=== PATIENT | male | born 1960 | race Caucasian/White ===

== ENCOUNTER 2017-06-01 10:50 | Emergency (ER) | payer MEDICAID ==
[2017-06-01 11:40] LABS: % IMMATURE GRANULYOCYTES 0.5 % (0.0-1.1); ABSOLUTE IMMATURE GRANULOCYTES 0.03 10^3/uL (0.00-0.10); ADD DIFF? NO; ADD MORPH? NO; ADD SCAN? NO; ATYPICAL LYMPHOCYTE FLAG 10 (0-99); FRAGMENT RBC FLAG 0 (0-99); HEMATOCRIT 47.6 % (40.0-51.0); LEFT SHIFT FLG 0 (0-99); LIPEMIA HEMOLYSIS FLAG 90 (0-99); MEAN CELL HEMOGLOBIN 31.2 pg (27.9-34.1); MEAN CELL HEMOGLOBIN CONCENTR. 35.7 g/dL (32.4-36.7); MEAN CELL VOLUME 87.3 fL (81.5-99.8); MEAN PLATELET VOLUME 9.5 fL (8.7-11.7); PLATELET CLUMPS FLAG 0 (0-99); PLATELET COUNT 250 10^3/uL (150-400); RED BLOOD CELL COUNT 5.45 10^6/uL (4.40-6.38)
[2017-06-01] MEDS ORDERED: NS 1,000 ML IV ONE (11:42)
[2017-06-01 12:03] LABS: ALANINE AMINOTRANSFERASE 56 IU/L (21-72); ALBUMIN 4.4 g/dL (3.5-5.0); ALKALINE PHOSPHATASE 114 IU/L (38-126); ANION GAP 13 mEq/L (8-16); ASPARTATE AMINOTRANSFERASE 39 IU/L (17-59); BILIRUBIN-CONJUGATED 0.3 mg/dL (0.0-0.5); BILIRUBIN-UNCONJUGATED 0.7 mg/dL (0.0-1.1); CALCIUM 9.9 mg/dL (8.5-10.4); CARBON DIOXIDE 22 mEq/l (22-31); CHLORIDE 105 mEq/L (97-110); GLOMERULAR FILTRATION RATE > 60; GLUCOSE 94 mg/dL (70-100); POTASSIUM 4.5 mEq/L (3.5-5.2); SODIUM 140 mEq/L (134-144); TOTAL PROTEIN 7.5 g/dL (6.3-8.2)
--- NOTE | 2017-06-01 12:14 | EDPHY ---
H & P Stated Complaint: Loose stool/diarrhea yesterday;int mid abd pain relieved w/ belching - Personal History Current Tetanus Diphtheria and Acellular Pertussis (TDAP): Yes - Medical/Surgical History Hx Asthma: No Hx Chronic Respiratory Disease: No Hx Diabetes: No Hx Cardiac Disease: No Hx Renal Disease: No Hx Cirrhosis: No Hx Alcoholism: No Hx HIV/AIDS: No Hx Splenectomy or Spleen Trauma: No Other PMH: anxiety - Social History Smoking Status: Never smoked Time Seen by Provider: 06/01/17 11:31 HPI/ROS: CHIEF COMPLAINT: Epigastric pain since yesterday morning HISTORY OF PRESENT ILLNESS: 56-year-old male no history of cardiac disease, no history of chronic abdominal pathology complaining of epigastric discomfort, belching more than usual and loose stool since yesterday morning. No radiation of epigastric pain. No fever or chills. No vomiting. No nausea. No back pain. No head ache. No syncope or near syncope. No urinary abnormality. No palpitations. No dyspnea. No neck pain. REVIEW OF SYSTEMS: A ten point review of systems was performed and is negative with the exception of the items mentioned in the HPI PAST MEDICAL & SURGICAL HISTORY: Inguinal herniorrhaphy by Dr. Mayra Katz SOCIAL HISTORY: nonsmoker. Social alcohol use only PHYSICAL EXAM (Prior to examination, patient consented to physical exam, hands were washed and my usual and customary physical exam procedures followed) 1) GENERAL: Well-developed, well-nourished, alert and oriented. Appears to be in no acute distress. 2) HEAD: Normocephalic, atraumatic 3) HEENT: Pupils equal, round, reactive to light bilaterally. Sclera anicteric. Nasopharynx, oropharynx, clear, no lesions. Moist mucous membranes 4) NECK: Full range of motion, no meningeal signs. 5) LUNGS: Clear auscultation bilaterally, no wheezes, no rhonchi, no retractions. 6) HEART: Regular rate and rhythm, no murmur, no heave, no gallop. 7) ABDOMEN: No guarding, tender to palpation epigastrium and positive Lester sign negative McBurney's, negative Rovsing's, negative peritoneal sign, 8) MUSCULOSKELETAL: Moving all extremities, no focal areas of tenderness, no obvious trauma. No peripheral edema or discoloration. 9) BACK: No CVA tenderness, no midline vertebral tenderness, no fluctuance, no step-off, no obvious trauma, no visual or palpable abnormality. 10) SKIN: No rash, no petechiae. 11) Psychiatric: Patient is oriented X 3, there is no agitation. DIFFERENTIAL DIAGNOSIS: [In no particular order, including but not limited to biliary colic, cholecystitis, peptic ulcer disease, pancreatitis, VA, and gastroenteritis. This is a partial list of diagnoses considered. These considerations are based on history, physical exam, past history and reassessment. (Stacy Nolasco) Constitutional: Initial Vital Signs Temperature (C) 36.8 C 06/01/17 10:57 Heart Rate 71 06/01/17 10:57 Respiratory Rate 18 06/01/17 10:57 Blood Pressure 140/87 H 06/01/17 10:57 O2 Sat (%) 98 06/01/17 10:57 O2 Delivery Mode Room Air Allergies/Adverse Reactions: "allergic to something but can't re Allergy (Uncoded 06/01/17 11:02) Home Medications: Medication Instructions Recorded PARoxetine CR [Paxil Cr 25mg (*)] 25 mg PO 06/01/17 Pantoprazole Sodium [Protonix 40mg 40 mg PO DAILY #30 tab 06/01/17 (RX)] Medical Decision Making - Diagnostics Imaging Results: Images reviewed myself (Stacy Nolasco) ED Course/Re-evaluation: 3:30 p.m.: This patient was re-evaluated with serial examinations and care and management discussed with secondary supervising physician Dr. Edith Mcgregor. Discussed with patient his imaging results. Re-examined him, states that his pain is currently 1/10 any remains mildly tender in the epigastrium. No McBurney's point pain. The specific etiology for his abdominal pain is incompletely clear at this time. I think that cardiac etiology such as VA is less than likely in the presence of normal EKG, normal troponin, normal chest x- ray and symptoms then occurring for 24 hours. He has no evidence of bowel obstruction, no evidence of acute cholecystitis, no evidence of acute surgical abdominal pathology. He continues to belch. Starting the patient on proton pump inhibitor and recommended follow up with Gastroenterology and primary care provider. He has been given usual customary abdominal precautions and instructions and feels comfortable being discharged. (Stacy Nolasco) Other Provider: The patient wasevaluatedand managed by themtnlevel provider. My co- signature indicates that Harrison reviewed this chart and I agree with the findings and plan of care asdocumented. I am the secondary supervising physician. (Edith Mcgregor) - Data Points Laboratory Results: Laboratory Results 06/01/17 11:25 06/01/17 11:25 Medications Given: Discontinued Medications Al Hydroxide/Mg Hydroxide (Maalox Susp) 30 ml PO ONCE ONE Stop: 06/01/17 15:35 Last Admin: 06/01/17 15:45 Dose: 30 ml Hyoscyamine Sulfate (Levsin, Hyomax-Sl) 0.25 mg PO ONCE ONE Stop: 06/01/17 15:35 Last Admin: 06/01/17 15:44 Dose: 0.25 mg Sodium Chloride (Ns) 1,000 mls @ 0 mls/hr IV ONCE ONE PRN Reason: Wide Open Stop: 06/01/17 11:43 Last Admin: 06/01/17 11:46 Dose: 1,000 mls Lidocaine (Lidocaine 2% Viscous) 15 ml PO ONCE ONE Stop: 06/01/17 15:35 Last Admin: 06/01/17 15:45 Dose: 15 ml Departure - Departure Disposition: Home, Routine, Self-Care Clinical Impression: Belching, Abdominal discomfort, epigastric Condition: Good Instructions: Epigastric Pain (ED) Additional Instructions: Seek immediate medical attention if you develop new or worsening symptoms, if you develop fevers, chills, inability to tolerate oral intake, if you develop chest pain, back pain, dizziness or any other symptoms that concerns you. Referrals: Domingo Vides MD, FACG [Medical Doctor] - 2-3 days without fail Prescriptions: Pantoprazole Sodium [Protonix 40mg (RX)] 40 mg PO DAILY #30 tab
--- NOTE | 2017-06-01 12:25 | CPEKG ---
Heart Rate: 66 RR Interval: 909 P-R Interval: 152 QRSD Interval: 78 QT Interval: 420 QTC Interval: 441 P [place]: 32 QRS [place]: 10 T Wave [place]: 16 EKG Severity - NORMAL ECG - EKG Impression: SINUS RHYTHM Electronically Signed By: Dustin Fernandez 03-Jun-2017 09:30:04
[2017-06-01 12:37] LABS: INR 1.02 (0.83-1.16); PROTIME(PATIENT) 13.3 SEC (12.0-15.0)
[2017-06-01 12:38] LABS: APTT 29.6 SEC (23.0-38.0)
[2017-06-01] MEDS ORDERED: IOPAMIDOL (ISOVUE-300) 100 ML BTL ONE (14:12)
[2017-06-01] MEDS ORDERED: MAG HYDROX/AL HYDROX/SIMETH 30 ML UDCUP PO ONE (15:34)
[2017-06-01] MEDS ORDERED: LIDOCAINE 2% VISCOUS 15 ML UDCUP PO ONE (15:34)
[2017-06-01] MEDS ORDERED: HYOSCYAMINE SULFATE 0.125 MG TAB PO ONE (15:34)
[2017-06-01 16:01] VITALS: BP 117/80; PULSE 82; RESP 16; TEMP 98.9; O2SAT 96
== END 2017-06-01 15:59 | disposition home or self-care (01) ==
DX: R10.13 Epigastric pain (principal); R14.2 Eructation; R19.7 Diarrhea, unspecified
CPT/HCPCS: Q9967